=== PATIENT | female | born 1950 | race Caucasian/White ===

== ENCOUNTER 2020-09-22 11:58 | Inpatient (IN) | payer OTHER ==
[~2020-09-22] VITALS: Ht 160 cm; Wt 74.8 kg
[2020-09-22 12:30] LABS: HEMOGLOBIN 14.7 gm/dl (12.3-15.3); RED BLOOD COUNT 4.96 M/UL (4.00-5.10); WHITE BLOOD COUNT 8.7 K/UL (4.5-11.0)
[2020-09-22 13:01] LABS: BUN/CREATININE RATIO 36 (0-10)
[2020-09-22] MEDS ORDERED: LASIX40 MG PO (15:35)
[2020-09-22] MEDS ORDERED: IMDUR ER TAB 6060 MG PO (15:35)
[2020-09-22] MEDS ORDERED: SYNTHROID125 MCG PO (15:35)
[2020-09-22] MEDS ORDERED: IMDUR ER TAB 3030 MG PO (15:36)
[2020-09-22] MEDS ORDERED: PRESERVISION A1 EAC2 PO (15:37)
[2020-09-22] MEDS ORDERED: FISH OIL 1,0001 EACH PO (15:37)
[2020-09-22] MEDS ORDERED: CLARITIN10 MG PO (15:37)
[2020-09-22] MEDS ORDERED: K-DUR TAB 20 M20 MEQ PO (15:38)
[2020-09-22] MEDS ORDERED: NITROSTAT0.4 MG PO (15:38)
[2020-09-22] MEDS ORDERED: LOPRESSOR50 MG PO (15:38)
[2020-09-22] MEDS ORDERED: ASPIRIN EC81 MG PO (15:39)
[2020-09-22] MEDS ORDERED: HYZAAR 100-251 EACH PO (15:39)
[2020-09-23 07:38] LABS: HEMOGLOBIN 14.1 gm/dl (12.3-15.3); RED BLOOD COUNT 4.8 M/UL (4.00-5.10)
[2020-09-23 07:39] LABS: WHITE BLOOD COUNT 5.2 K/UL (4.5-11.0)
[2020-09-23 08:13] LABS: BUN/CREATININE RATIO 42 (0-10)
--- NOTE | 2020-09-23 09:50 | NUR ---
TISH BRANCH MADE AWARE OF CONSULT, WHICH WAS ORDERED YESTERDAY.
[2020-09-25 03:06] LABS: HEMOGLOBIN 13.6 gm/dl (12.3-15.3); RED BLOOD COUNT 4.6 M/UL (4.00-5.10)
[2020-09-25 03:28] LABS: BUN/CREATININE RATIO 31 (0-10)
[2020-09-25 04:02] LABS: WHITE BLOOD COUNT 9.4 K/UL (4.5-11.0)
[2020-09-26 04:05] LABS: HEMOGLOBIN 13.6 gm/dl (12.3-15.3); RED BLOOD COUNT 4.57 M/UL (4.00-5.10); WHITE BLOOD COUNT 8.4 K/UL (4.5-11.0)
[2020-09-28] MEDS ORDERED: LOPRESSOR 50 MG50 MG PO (15:13)
[2020-09-28] MEDS ORDERED: ELIQUIS 5 MG TAB5 MG PO (15:13)
[2020-09-28] MEDS ORDERED: CARDIZEM CD120 MG PO (15:13)
== END 2020-09-28 17:15 | disposition home or self-care (01) | DRG 178 ==
LOC: ER1 11:58 → ZEROF 14:05 → PROG CARE 14:05 → M/S 09-27 01:37
PROVIDERS: Emergency Medicine; Physician Assistant; ADMIT Internal Medicine
PROC: 8E0ZXY6 Isolation (ICD-10-PCS; principal; 2020-09-22)
DX: U07.1 COVID-19 (principal); R04.2 Hemoptysis; N17.9 Acute kidney failure, unspecified; J20.8 Acute bronchitis due to other specified organisms; I48.91 Unspecified atrial fibrillation; I95.9 Hypotension, unspecified; E03.9 Hypothyroidism, unspecified; I25.10 Atherosclerotic heart disease of native coronary artery without angina pectoris; R79.89 Other specified abnormal findings of blood chemistry; E87.6 Hypokalemia; I44.7 Left bundle-branch block, unspecified; I10 Essential (primary) hypertension; Z90.49 Acquired absence of other specified parts of digestive tract; Z88.8 Allergy status to other drugs, medicaments and biological substances; Z79.82 Long term (current) use of aspirin; Z79.890 Hormone replacement therapy; Z79.899 Other long term (current) drug therapy; Z82.49 Family history of ischemic heart disease and other diseases of the circulatory system
CPT/HCPCS: 36415; 71045; 80048; 80053; 82550; 82553; 83735; 83874; 83880; 84439; 84443; 84484; 85025; 85379; 85610; 85730; 87040; 93005; 96365; 96375; 96376; 99285; J1100; J1644; J2405; J7050; U0002